=== PATIENT | female | born 1940 | race Caucasian/White ===

== ENCOUNTER 2022-02-08 11:19 | Emergency (ER) | payer MEDICARE, OTHER ==
[2022-02-08 11:51] LABS: HEMOGLOBIN 13.3 gm/dl (12.3-15.3); RED BLOOD COUNT 4.45 M/UL (4.00-5.10); WHITE BLOOD COUNT 6.7 K/UL (4.5-11.0)
[2022-02-08 13:18] LABS: BUN/CREATININE RATIO 15 (0-10)
[2022-02-08] MEDS ORDERED: ANTIVERT 12.512.5 MG PO (13:39)
== END 2022-02-09 09:15 | disposition short-term general hospital (02) ==
LOC: ER1 11:19
PROVIDERS: Physician Assistant
DX: I61.3 Nontraumatic intracerebral hemorrhage in brain stem (principal); I25.2 Old myocardial infarction; I10 Essential (primary) hypertension; F17.210 Nicotine dependence, cigarettes, uncomplicated; Z95.5 Presence of coronary angioplasty implant and graft
CPT/HCPCS: 36430; 70450; 71045; 80053; 81001; 82550; 82553; 83735; 84484; 85025; 86850; 86900; 86901; 93005; 94760; 96374; 96375; 99285; J2270; J2550; P9035; Q9967

== ENCOUNTER 2022-04-04 19:29 | Emergency (ER) | payer MEDICARE, OTHER ==
[~2022-04-04 19:29] MED LIST: ANTIVERT 12.512.5 MG PO
[2022-04-04 20:02] LABS: HEMOGLOBIN 13.9 gm/dl (12.3-15.3); RED BLOOD COUNT 4.68 M/UL (4.00-5.10); WHITE BLOOD COUNT 15.4 K/UL (4.5-11.0)
[2022-04-05] MEDS ORDERED: ZOFRAN ODT 4 MG4 MG PO (02:02)
[2022-04-05] MEDS ORDERED: AMOX TR-K CLV1 EAC4 PO (02:02)
[2022-04-05] MEDS ORDERED: BENTYL 20MG TAB20 MG PO (02:02)
[2022-04-05 02:31] LABS: ADENOVIRUS F 40/41 Not Detected (Negative); ASTROVIRUS Not Detected (Negative); CAMPYLOBACTER Not Detected (Negative); CRYPTOSPORIDIUM Not Detected (Negative); E.COLI 0157 Not Detected (Negative); ENTAMOEBA HISTOLYTICA Not Detected (Negative); ENTEROAGGREGATIVE E.COLI (EAEC Not Detected (Negative); ENTEROTOXIGENIC E.COLI (ETEC) Not Detected (Negative); GIARDIA LAMBLIA Not Detected (Negative); NOROVIRUS GI/GII Not Detected (Negative); PLESIOMONAS SHIGELLOIDES Not Detected (Negative); ROTOVIRUS A Not Detected (Negative); SALMONELLA Not Detected (Negative); SAPOVIRUS Not Detected (Negative); SHIG/ENTEROINVAS.ECOLI (EIEC) Not Detected (Negative); SHIGA-LIK TOX.PRO.E.COLI (STEC Not Detected (Negative); VIBRIO Not Detected (Negative); VIBRIO CHOLERAE Not Detected (Negative); YERSINIA ENTEROCOLITICA Not Detected (Negative)
[2022-04-05 12:58] LABS: CLOSTRIDIUM DIFFICILE TOX A/B Not Detected (Negative); ENTEROPATHOGENIC E.COLI (EPEC) DETECTED (Negative)
== END 2022-04-05 02:10 | disposition home or self-care (01) ==
LOC: ER1 19:29
PROVIDERS: Family Medicine; Physician Assistant
DX: K52.9 Noninfective gastroenteritis and colitis, unspecified (principal); I10 Essential (primary) hypertension; Z90.89 Acquired absence of other organs; Z90.49 Acquired absence of other specified parts of digestive tract; F17.210 Nicotine dependence, cigarettes, uncomplicated; Z20.822 Contact with and (suspected) exposure to COVID-19
CPT/HCPCS: 0240U; 80053; 81001; 82272; 82550; 82553; 83690; 84484; 85025; 87045; 87046; 87086; 87177; 87209; 87507; 89055; 93005; 96374; 99284; J2405; Q9967

== ENCOUNTER → 2022-05-17 | Outpatient (CLI) | payer MEDICARE, OTHER ==
[~2022-05-17] MED LIST changes: +AMOX TR-K CLV1 EAC4 PO; +BENTYL 20MG TAB20 MG PO; +ZOFRAN ODT 4 MG4 MG PO
== END ==
LOC: NM 07:40
DX: Z01.810 Encounter for preprocedural cardiovascular examination (principal); I25.119 Atherosclerotic heart disease of native coronary artery with unspecified angina pectoris; R06.02 Shortness of breath; I10 Essential (primary) hypertension
CPT/HCPCS: 78452; A9502; J2785